=== PATIENT | male | born 1980 | race Caucasian/White ===

== ENCOUNTER 2019-01-08 04:08 | Emergency (ER) | payer OTHER ==
[2019-01-08] MEDS ORDERED: OXYMETAZOLINE 0.05% NASAL SOLUTION 15 ML BOTTLE NS ONE (04:49)
--- NOTE | 2019-01-08 04:58 | PDOC ---
History of Present Illness - General Stated Complaint: EPISTAXIS Time Seen by Provider: 01/08/19 04:58 History Source: Patient Exam Limitations: No Limitations - History of Present Illness Initial Comments: 38 year old male with PMH HTN, BONNY, ETOH abuse presented to ED for epistaxis since yesterday. Pt reported around 1600 yesterday he developed bleeding from the left nare while masturbating, specifically during climax, he applied compression and the bleed stopped on its own. He reported then last night it started up again, and he was unable to stop it with compression, prompting him to call EMS. He denied chest pain, shortness of breath, recent illness, blowing his nose, AC use, cocaine use, drug use. He reported he has not had a nose bleed prior to yesterday. Past History - Past Medical History Allergies/Adverse Reactions: Allergies Allergy/AdvReac Type Severity Reaction Status Date / Time No Known Allergies Allergy Verified 01/08/19 05:56 Home Medications: Ambulatory Orders Amlodipine Besylate 10 mg PO DAILY 01/08/19 - Psycho Social/Smoking Cessation Hx Smoking Status: Yes Smoking History: Current every day smoker Number of Cigarettes Smoked Daily: 5 Hx Alcohol Use: No Drug/Substance Use Hx: No Substance Use Type: None Review of Systems - Review of Systems Able to Perform ROS?: Yes Comments:: ROS General: denied fever, chills, generalized weakness. HEENT: admitted to epistaxis. denied sore throat, rhinorrhea, ear pain. Cardiovascular: denied chest pain, palpitations, syncope, diaphoresis. Respiratory: denied shortness of breath, cough, sputum production, hemoptysis. Gastrointestinal: denied abdominal pain, nausea, vomiting, diarrhea, constipation, blood in stool. Genitourinary: denied dysuria, increased urinary frequency, hematuria, urinary incontinence, flank pain. Back: denied back pain. Musculoskeletal: denied joint pain, muscle pain, joint swelling. Neurological: denied headache, dizziness, numbness, tingling, weakness. Integumentary: denied rash, laceration, abrasion. Hematologic/Lymphatic: denied bruising or bleeding. PE Constitutional: Well-nourished, Well-developed, appearing stated age. HEENT: head is normocephalic, atraumatic. no scalp hematomas. EOMI. PERRLA. active bleeding from left nare. no septal hematoma to right nare, dried blood with less bleeding than left. blood noted pooling around the left eye, appearing to be coming from the lacrimation duct. bilateral hemotympanum. mild tongue fascilulations. Neck: supple. Full ROM. no midline c-spine tenderness to palpation. Cardiovascular: regular heart rhythm. no murmurs. no pericardial friction rub. Respiratory: clear to auscultation bilaterally. no crackles, rhonchi or wheezing. no stridor. Gastrointestinal: soft, nontender. normal bowel sounds. no rebound, guarding, masses. Extremities: peripheral pulses intact. no lower extremity edema. Neurological: mild hand tremors. CN 2-12 grossly intact. moves all four extremities. Psych: awake, alert, oriented x3. follows commands. answers questions appropriately. ED Treatment Course - LABORATORY CBC & Chemistry Diagram: 01/08/19 05:38 01/08/19 05:38 Medical Decision Making - Medical Decision Making 38 year old male with above PMH presented to ED for epistaxis. Physical examination revealed bilateral hemotympanum. Pt reported he drank 2 glasses of wine yesterday, usually drinks "much more" "4-5 whiskey drinks". Initial Vital Signs Temp Pulse Resp BP Pulse Ox 98 F 115 H 18 145/112 H 100 01/08/19 04:25 01/08/19 04:25 01/08/19 04:25 01/08/19 04:25 01/08/19 04:25 Afebrile. Tachycardic. No tachypnea. Hypertensive. No hypoxia on room air. Labs ordered: CBC, CMP, Coags Imaging ordered: CT head with IV contrast Medications ordered: Afrin, ativan 2 mg IV once Rhinorocket 7.5 placed in left nare. 01/08/19 06:25 Bleeding stopped from left nare, but continued slowly from right nare. Rhinorocket 7.5 placed in right nare. CBC WBC 9.1 K/mm3 (4.0-10.0) 01/08/19 05:38 RBC 4.67 M/mm3 (4.00-5.60) 01/08/19 05:38 Hgb 15.3 GM/dL (11.7-16.9) 01/08/19 05:38 Hct 43.3 % (35.4-49) 01/08/19 05:38 MCV 92.8 fl (80-96) 01/08/19 05:38 MCH 32.8 pg (25.7-33.7) 01/08/19 05:38 MCHC 35.3 g/dl (32.0-35.9) 01/08/19 05:38 RDW 14.0 % (11.9-15.9) 01/08/19 05:38 Plt Count 164 K/MM3 (134-434) 01/08/19 05:38 MPV 6.3 fl (7.5-11.1) L 01/08/19 05:38 Absolute Neuts (auto) 7.4 K/mm3 (1.5-8.0) 01/08/19 05:38 Neutrophils % 81.4 % (42.8-82.8) 01/08/19 05:38 Lymphocytes % 11.7 % (8-40) 01/08/19 05:38 Monocytes % 5.7 % (3.8-10.2) 01/08/19 05:38 Eosinophils % 0.8 % (0-4.5) 01/08/19 05:38 Basophils % 0.4 % (0-2.0) 01/08/19 05:38 Nucleated RBC % 0 % (0-0) 01/08/19 05:38 No leukocytosis. No anemia. CMP Sodium 137 mmol/L (136-145) 01/08/19 05:38 Potassium 3.7 mmol/L (3.5-5.1) 01/08/19 05:38 Chloride 103 mmol/L (98-107) 01/08/19 05:38 Carbon Dioxide 25 mmol/L (21-32) 01/08/19 05:38 Anion Gap 9 MMOL/L (8-16) 01/08/19 05:38 BUN 10.5 mg/dL (7-18) 01/08/19 05:38 Creatinine 0.8 mg/dL (0.55-1.3) 01/08/19 05:38 Est GFR (CKD-EPI)AfAm 132.27 01/08/19 05:38 Est GFR (CKD-EPI)NonAf 114.12 01/08/19 05:38 Random Glucose 112 mg/dL (74-106) H 01/08/19 05:38 Calcium 8.8 mg/dL (8.5-10.1) 01/08/19 05:38 Total Bilirubin 0.8 mg/dL (0.2-1) 01/08/19 05:38 AST 84 U/L (15-37) H 01/08/19 05:38 ALT 72 U/L (13-61) H 01/08/19 05:38 Alkaline Phosphatase 69 U/L (45-117) 01/08/19 05:38 Total Protein 7.8 g/dl (6.4-8.2) 01/08/19 05:38 Albumin 4.2 g/dl (3.4-5.0) 01/08/19 05:38 No electrolyte abnormalities. No KODY. Transaminitis. INR, PTT INR 0.88 (0.83-1.09) 01/08/19 05:38 01/08/19 07:00 Pt signed out to day resident. Pending CT head report. Discharge - Discharge Information Problems reviewed: Yes Clinical Impression/Diagnosis: Epistaxis, Alcohol withdrawal Condition: Stable Disposition: TRANSFER ACUTE CARE/OTHER HOSP - Follow up/Referral Referrals: Eunice Islas [Primary Care Provider] - - Patient Discharge Instructions - Post Discharge Activity
[2019-01-08] MEDS ORDERED: LORazepam 2 MG/ML SDV VIAL ONE (05:51)
[2019-01-08 05:55] LABS: BASO % 0.4 % (0-2.0); EOS % 0.8 % (0-4.5); HEMATOCRIT 43.3 % (35.4-49); HEMOGLOBIN 15.3 GM/dL (11.7-16.9); LYMPH % 11.7 % (8-40); MCH 32.8 pg (25.7-33.7); MCHC 35.3 g/dl (32.0-35.9); MEAN CELL VOLUME 92.8 fl (80-96); MEAN PLT VOLUME 6.3 fl (7.5-11.1); MONO % 5.7 % (3.8-10.2); NEUT % 81.4 % (42.8-82.8); PLATELET COUNT 164 K/MM3 (134-434); RBC 4.67 M/mm3 (4.00-5.60); WHITE BLOOD COUNT 9.1 K/mm3 (4.0-10.0)
[2019-01-08 06:24] VITALS: BMI 30.7
[2019-01-08 06:24] LABS: ALBUMIN 4.2 g/dl (3.4-5.0); BILIRUBIN,TOTAL 0.8 mg/dL (0.2-1); BLOOD UREA NITROGEN 10.5 mg/dL (7-18); CALCIUM 8.8 mg/dL (8.5-10.1); CREATININE 0.8 mg/dL (0.55-1.3); POTASSIUM 3.7 mmol/L (3.5-5.1); TOT PROT 7.8 g/dl (6.4-8.2)
[2019-01-08 06:41] LABS: INR 0.88 (0.83-1.09); PROTHROMBIN TIME (PATIENT) 10.4 SEC (9.7-13.0)
[2019-01-08 07:14] VITALS: PULSE 120
--- NOTE | 2019-01-08 07:16 | PDOC ---
Attending Attestation - Resident Resident Name: RaudelKeitha - ED Attending Attestation I have performed the following: I have examined & evaluated the patient, The case was reviewed & discussed with the resident, I agree w/resident's findings & plan, Exceptions are as noted - HPI HPI: 01/08/19 07:11 38M pmh HTN, BONNY, EtOH abuse here with epistaxis. Second episode in the past 24h, this time it is not stopping to direct pressure. Denies AC, bleeding disorders, no trauma, drug use. - Physicial Exam PE: 01/08/19 07:12 Agree with exam as documented by resident - Medical Decision Making 01/08/19 07:12 Exam is significant for bilateral hemotympanum. Bilateral 7.5cm rhino rockets places f/u labs, including coags, ct b+ If CT w/o malformations, fracture If no coagulopathies, anemia, uremia If pt becomes hemostatic Than can DC with close ENT f/u If not then transfer for definitive ENT eval and treatment
--- NOTE | 2019-01-08 07:17 | PDOC ---
*Physical Exam - Vital Signs Last Vital Signs Temp Pulse Resp BP Pulse Ox 98 F 120 H 19 170/108 H 100 01/08/19 04:25 01/08/19 07:12 01/08/19 07:12 01/08/19 07:12 01/08/19 04:25 ED Treatment Course - LABORATORY CBC & Chemistry Diagram: 01/08/19 05:38 01/08/19 05:38 - ADDITIONAL ORDERS Additional order review: Laboratory Results 01/08/19 01/08/19 01/08/19 05:38 05:38 05:38 PT with INR 10.40 INR 0.88 PTT (Actin FS) 34.9 Sodium 137 Potassium 3.7 Chloride 103 Carbon Dioxide 25 Anion Gap 9 BUN 10.5 Creatinine 0.8 Est GFR (CKD-EPI)AfAm 132.27 Est GFR (CKD-EPI)NonAf 114.12 Random Glucose 112 H Calcium 8.8 Total Bilirubin 0.8 AST 84 H ALT 72 H Alkaline Phosphatase 69 Total Protein 7.8 Albumin 4.2 01/08/19 05:38 RBC 4.67 MCV 92.8 MCHC 35.3 RDW 14.0 MPV 6.3 L Neutrophils % 81.4 Lymphocytes % 11.7 Monocytes % 5.7 Eosinophils % 0.8 Basophils % 0.4 - Medications Given in the ED: ED Medications Discontinued Medications Generic Name Dose Route Start Last Admin Trade Name Freq PRN Reason Stop Dose Admin Lorazepam 2 mg 01/08/19 05:48 01/08/19 05:55 Ativan Injection - IVPUSH 01/08/19 05:49 2 mg ONCE ONE Administration Oxymetazoline HCl 1 spray 01/08/19 04:49 01/08/19 05:28 Afrin - NS 01/08/19 04:50 1 spray ONCE ONE Administration Medical Decision Making - Medical Decision Making 01/08/19 07:[address] Starks 38y/o M hx of HTN and sleep apnea presents to ED with epistaxis Coags were normal - Uremia -Denies any trauma - bilateral hemotympanum To Do's CT Pending read - Dispo: Follow up with Dr. Jasmine today if CT is negative contact office to see if patient can be seen today. 01/08/19 07:[address] FINDINGS: The ventricles and other CSF spaces are normal in size and configuration. There is no intracranial mass. No abnormal fluid collections. No detectable cerebral infarction. No intracranial hemorrhage. No abnormal focus of contrast enhancement. There is fluid in the maxillary sphenoid and ethmoid sinuses as well as in the nasal cavity and nasopharynx. Since the patient is having epistaxis, this fluid most likely represents blood. 01/08/19 07:59 Contacted [facility] for transfer 01/08/19 08:[address] Hugo at [facility] transfer arranged by [facility]. Discharge - Discharge Information Problems reviewed: Yes Clinical Impression/Diagnosis: Epistaxis Condition: Stable Disposition: TRANSFER ACUTE CARE/OTHER HOSP - Admission No - Follow up/Referral Referrals: Eunice Islas [Primary Care Provider] - - Patient Discharge Instructions - Post Discharge Activity - Transfer to Acute Care Facility Receiving Facility Name: [facility]
[2019-01-08] MEDS ORDERED: ACETAMINOPHEN 500 MG TABLET (FP) PO ONE (07:31)
[2019-01-08] MEDS ORDERED: ACETAMINOPHEN 325 MG TABLET (FP) ONE (08:19)
[2019-01-08 09:14] VITALS: TEMP 98
[2019-01-08 09:16] VITALS: BP 175/85
== END 2019-01-08 09:00 | disposition short-term general hospital (02) ==
LOC: JER 04:08
PROC: 2Y41X5Z Packing of Nasal Region using Packing Material (ICD-10-PCS; principal; 2019-01-08)
PROC: 3E033NZ Introduction of Analgesics, Hypnotics, Sedatives into Peripheral Vein, Percutaneous Approach (ICD-10-PCS; 2019-01-08)
DX: R04.0 Epistaxis (principal); F10.239 Alcohol dependence with withdrawal, unspecified
CPT/HCPCS: 30901-25; 36415; 70460-TC; 80053; 85025; 85610; 85730; 86850; 86900; 86901; 96374; 99285-25

== ENCOUNTER 2024-03-10 01:11 | Emergency (ER) | payer OTHER ==
[2024-03-10 01:23] VITALS: BP 154/90; PULSE 104; RESP 18; TEMP 98.2; BMI 28.5
[2024-03-10] MEDS ORDERED: DIPHTH,PERTUSS(ACELL),TET 0.5 ML DISP.SYRIN IM ONE (02:39)
[2024-03-10] MEDS: DIPHTH,PERTUSS(ACELL),TET 0.5 ML DISP.SYRIN IM ONE (02:46)
== END 2024-03-10 03:37 | disposition home or self-care (01) ==
LOC: JER 01:11
PROC: 0HQ1XZZ Repair Face Skin, External Approach (ICD-10-PCS; principal; 2024-03-10)
PROC: 3E0234Z Introduction of Serum, Toxoid and Vaccine into Muscle, Percutaneous Approach (ICD-10-PCS; 2024-03-10)
DX: S01.111A Laceration without foreign body of right eyelid and periocular area, initial encounter (principal); W22.8XXA Striking against or struck by other objects, initial encounter
CPT/HCPCS: 12011-25; 90471; 90715; 99284-25